=== PATIENT | female | born 1950 ===

== ENCOUNTER → 2024-05-07 | Outpatient (CLI) | payer MEDICAID | END | disposition home or self-care (01) | LOC: Rad HDHVI 08:04 | PROVIDERS: ATTEND Internal Medicine Cardiovascular Disease | DX: R55 Syncope and collapse (principal) | CPT/HCPCS: 93880 ==

== ENCOUNTER → 2024-06-13 | Outpatient (CLI) | payer MEDICAID ==
[~2024-06-13] VITALS: Ht 147.3 cm; Wt 70.3 kg
== END | disposition home or self-care (01) ==
LOC: Rad HDHVI 08:58
PROVIDERS: ATTEND Internal Medicine Cardiovascular Disease
DX: I11.0 Hypertensive heart disease with heart failure (principal); I50.9 Heart failure, unspecified; E78.00 Pure hypercholesterolemia, unspecified; E11.9 Type 2 diabetes mellitus without complications; R55 Syncope and collapse; R06.00 Dyspnea, unspecified
CPT/HCPCS: 78452; 93017; 96374; A9500